=== PATIENT | male | born 1935 | race Caucasian/White ===

== ENCOUNTER 2018-02-01 22:03 | Inpatient (IN) ==
[2018-02-01] MEDS ORDERED: ALBUTEROL/IPRATROPIUM 3 ML NEB RESP TX STA (23:07)
[2018-02-01] MEDS ORDERED: methylPREDNISolone SOD SUC 125 MG/2 ML VIAL IV STA (23:07)
[2018-02-01 23:20] LABS: Basophils # 0.1 10*3/uL (0.0-0.2); Basophils % 0.6 % (0.0-0.8); Eosinophils # 0.3 10*3/uL (0.0-0.87); Eosinophils % 2.7 % (0.00-10.9); Hematocrit 37.2 VOL% (42.0-52.0); Hemoglobin 11.9 GM/DL (14.0-18.0); Immature Granulocytes % 0.9 %; Immature Granulocytes Absolute 0.09 #; Lymphocytes # 1.2 10*3/uL (1.4-4.0); Lymphocytes % 11.5 % (21.2-54.2); Mean Corpuscular Hemoglobin 31 PG (27-34); Mean Corpuscular Volume 95.4 FL (87-102); Mean Platelet Volume 10.3 FL (9.6-12.0); Monocytes # 0.7 10*3/uL (0.11-0.8); Monocytes % 6.9 % (1.7-12.7); Neutrophils # 7.7 10*3/uL (1.4-7.4); Neutrophils % 77.4 % (38.7-73.9); Platelet Count 240 T/CUMM (130-400); Red Cell Distribution Width 13.8 % (9.3-17.3)
[2018-02-01 23:30] LABS: Albumin 3.1 G/DL (3.4-5.0); Bilirubin,Total 0.4 MG/DL (0.2-1.0); Calcium 8.6 MG/DL (8.5-10.1); Osmolality,Calculated 283.5 MOS/KG (273-304); Potassium 4.6 MMOL/L (3.5-5.1); Total Protein 6.7 G/DL (6.4-8.3)
[2018-02-02 00:29] LABS: VBG Base Excess 3.6 MEQ/L (0-4); VBG HCO3 27.6 MEQ/L (24-28); VBG Oxygen Saturation 96.9 %; VBG PCO2 51.9 MMHG (41-51); VBG PH 7.371
[2018-02-02] MEDS ORDERED: ALBUTEROL 2.5 MG/3 ML NEB RESP TX PRN (01:42)
[2018-02-02] MEDS ORDERED: ONDANSETRON 4 MG/2 ML VIAL IV PRN (01:42)
[2018-02-02] MEDS ORDERED: MINOXIDIL 2.5 MG TABLET PO STA (03:30)
[2018-02-02] MEDS ORDERED: amLODIPine 5 MG TABLET PO STA (03:30)
[2018-02-02] MEDS: cefTRIAXone 1,000 MG in SYRINGE 1 EACH IV SCH (03:31)
[2018-02-02] MEDS: ALBUTEROL/IPRATROPIUM 3 ML NEB RESP TX SCH ×3 (07:14→19:24)
[2018-02-02 07:50] LABS: Basophils % 0.2 % (0.0-0.8); Eosinophils % 0.1 % (0.00-10.9); Hematocrit 36.2 VOL% (42.0-52.0); Hemoglobin 11.8 GM/DL (14.0-18.0); Immature Granulocytes % 1.3 %; Immature Granulocytes Absolute 0.11 #; Lymphocytes # 0.7 10*3/uL (1.4-4.0); Lymphocytes % 8.2 % (21.2-54.2); Mean Corpuscular HGB Conc 32.6 GM/DL (32-36); Mean Corpuscular Hemoglobin 31 PG (27-34); Mean Corpuscular Volume 93.8 FL (87-102); Mean Platelet Volume 10.1 FL (9.6-12.0); Monocytes # 0.1 10*3/uL (0.11-0.8); Monocytes % 0.9 % (1.7-12.7); Neutrophils # 7.6 10*3/uL (1.4-7.4); Neutrophils % 89.3 % (38.7-73.9); Platelet Count 241 T/CUMM (130-400); Red Blood Count 3.86 MC/CUMM (3.8-5.5); Red Cell Distribution Width 13.9 % (9.3-17.3); White Blood Count 8.6 T/CUMM (4-12)
[2018-02-02 08:24] LABS: Bilirubin,Total 0.5 MG/DL (0.2-1.0); Osmolality,Calculated 281.7 MOS/KG (273-304); Total Protein 7.2 G/DL (6.4-8.3)
[2018-02-02] MEDS ORDERED: methylPREDNISolone SOD SUC 40 MG/1 ML VIAL IV SCH (09:00)
[2018-02-02] MEDS: PANTOPRAZOLE 40 MG TABLET PO SCH (09:32)
[2018-02-02] MEDS: ENOXAPARIN 40 MG/0.4 ML SYRINGE SUBCUT SCH (09:32)
[2018-02-02] MEDS: methylPREDNISolone SOD SUC 40 MG/1 ML VIAL IV SCH ×2 (11:21→20:53)
[2018-02-02] MEDS ORDERED: hydrALAZINE 25 MG TABLET PO PRN (15:36)
[2018-02-02] MEDS ORDERED: amLODIPine 5 MG TABLET PO ONE (15:39)
[2018-02-02] MEDS: CARVEDILOL 12.5 MG TABLET PO SCH (17:41)
[2018-02-02] MEDS: CALCIUM (CARBONATE)/VITAMIN D 600 MG-400 UNIT TABLET PO SCH (20:51)
[2018-02-02] MEDS: ROSUVASTATIN 10 MG TABLET PO SCH (20:51)
[2018-02-02] MEDS: DOCUSATE SODIUM 100 MG CAPSULE PO SCH (20:51)
[2018-02-02] MEDS: AMITRIPTYLINE 50 MG TABLET PO SCH (20:52)
[2018-02-03] MEDS: ALBUTEROL/IPRATROPIUM 3 ML NEB RESP TX SCH ×4 (01:14→19:03)
[2018-02-03] MEDS: cefTRIAXone 1,000 MG in SYRINGE 1 EACH IV SCH (01:40)
[2018-02-03] MEDS: PANTOPRAZOLE 40 MG TABLET PO SCH (08:19)
[2018-02-03] MEDS: CARVEDILOL 12.5 MG TABLET PO SCH ×2 (08:19→16:15)
[2018-02-03] MEDS: MULTIVITAMIN (CENTRUM) TABLET PO SCH (08:20)
[2018-02-03] MEDS: hydroCHLOROthiazide 12.5 MG CAPSULE PO SCH (08:20)
[2018-02-03] MEDS: FINASTERIDE 5 MG TABLET PO SCH (08:20)
[2018-02-03] MEDS: amLODIPine 10 MG TABLET PO SCH (08:20)
[2018-02-03] MEDS: ENOXAPARIN 40 MG/0.4 ML SYRINGE SUBCUT SCH (08:21)
[2018-02-03] MEDS: MINOXIDIL 2.5 MG TABLET PO SCH (08:21)
[2018-02-03] MEDS: ASPIRIN EC 81 MG TABLET PO SCH (08:21)
[2018-02-03] MEDS: ASCORBIC ACID 500 MG TABLET PO SCH (08:21)
[2018-02-03] MEDS: TAMSULOSIN 0.4 MG CAPSULE PO SCH (08:21)
[2018-02-03] MEDS: CLOPIDOGREL 75 MG TABLET PO SCH (08:21)
[2018-02-03] MEDS: OMEGA 3 ACID ETHYL ESTERS 1 GM CAPSULE PO SCH (08:21)
[2018-02-03] MEDS: VITAMIN E 400 UNIT CAPSULE PO SCH (08:21)
[2018-02-03] MEDS: CETIRIZINE 10 MG TABLET PO SCH (08:23)
[2018-02-03] MEDS: methylPREDNISolone SOD SUC 40 MG/1 ML VIAL IV SCH ×2 (08:43→21:33)
[2018-02-03] MEDS: CALCIUM (CARBONATE)/VITAMIN D 600 MG-400 UNIT TABLET PO SCH (21:31)
[2018-02-03] MEDS: AMITRIPTYLINE 50 MG TABLET PO SCH (21:31)
[2018-02-03] MEDS: ROSUVASTATIN 10 MG TABLET PO SCH (21:31)
[2018-02-03] MEDS: DOCUSATE SODIUM 100 MG CAPSULE PO SCH (21:31)
[2018-02-04] MEDS: ALBUTEROL/IPRATROPIUM 3 ML NEB RESP TX SCH ×2 (00:17→07:14)
[2018-02-04] MEDS: cefTRIAXone 1,000 MG in SYRINGE 1 EACH IV SCH (01:40)
[2018-02-04 08:37] VITALS: BP 154/87
[2018-02-04] MEDS: MINOXIDIL 2.5 MG TABLET PO SCH (09:11)
[2018-02-04] MEDS: CARVEDILOL 12.5 MG TABLET PO SCH (09:11)
[2018-02-04] MEDS: PANTOPRAZOLE 40 MG TABLET PO SCH (09:11)
[2018-02-04] MEDS: VITAMIN E 400 UNIT CAPSULE PO SCH (09:11)
[2018-02-04] MEDS: amLODIPine 10 MG TABLET PO SCH (09:11)
[2018-02-04] MEDS: MULTIVITAMIN (CENTRUM) TABLET PO SCH (09:11)
[2018-02-04] MEDS: ASPIRIN EC 81 MG TABLET PO SCH (09:11)
[2018-02-04] MEDS: hydroCHLOROthiazide 12.5 MG CAPSULE PO SCH (09:11)
[2018-02-04] MEDS: TAMSULOSIN 0.4 MG CAPSULE PO SCH (09:11)
[2018-02-04] MEDS: FINASTERIDE 5 MG TABLET PO SCH (09:11)
[2018-02-04] MEDS: CETIRIZINE 10 MG TABLET PO SCH (09:11)
[2018-02-04] MEDS: OMEGA 3 ACID ETHYL ESTERS 1 GM CAPSULE PO SCH (09:12)
[2018-02-04] MEDS: CLOPIDOGREL 75 MG TABLET PO SCH (09:12)
[2018-02-04] MEDS: ASCORBIC ACID 500 MG TABLET PO SCH (09:12)
[2018-02-04] MEDS: ENOXAPARIN 40 MG/0.4 ML SYRINGE SUBCUT SCH (09:15)
[2018-02-04] MEDS: methylPREDNISolone SOD SUC 40 MG/1 ML VIAL IV SCH (09:16)
== END 2018-02-04 11:55 | disposition home or self-care (01) | DRG 203 ==
LOC: EDUNIT# → EDBD → N.ED 22:03 → N.EDINP 02-02 01:42 → SUATTDRO 02-02 01:42 → N.4E 02-02 02:28
PROVIDERS: ADMIT Internal Medicine; ATTEND Internal Medicine

== ENCOUNTER 2018-04-10 00:20 | Inpatient (IN) ==
[2018-04-10] MEDS ORDERED: ALBUTEROL/IPRATROPIUM 3 ML NEB RESP TX STA (01:01)
[2018-04-10] MEDS ORDERED: FUROSEMIDE 20 MG/2 ML VIAL IV STA (01:01)
[2018-04-10 01:03] LABS: Basophils % 0.5 % (0.0-0.8); Eosinophils # 0.4 10*3/uL (0.0-0.87); Eosinophils % 5.6 % (0.00-10.9); Hematocrit 30.1 VOL% (42.0-52.0); Hemoglobin 9.5 GM/DL (14.0-18.0); Immature Granulocytes % 0.6 %; Immature Granulocytes Absolute 0.05 #; Lymphocytes # 1.4 10*3/uL (1.4-4.0); Mean Corpuscular HGB Conc 31.6 GM/DL (32-36); Mean Corpuscular Hemoglobin 30 PG (27-34); Mean Platelet Volume 9.3 FL (9.6-12.0); Monocytes # 0.7 10*3/uL (0.11-0.8); Monocytes % 9.3 % (1.7-12.7); Neutrophils # 5.1 10*3/uL (1.4-7.4); Platelet Count 277 T/CUMM (130-400); Red Blood Count 3.17 MC/CUMM (3.8-5.5); Red Cell Distribution Width 13.6 % (9.3-17.3); White Blood Count 7.7 T/CUMM (4-12)
[2018-04-10 01:11] LABS: PT Patient Result 10.7 SECS; Partial Thromboplastin Time 24.7 SECS (0-40)
[2018-04-10 01:21] LABS: Albumin 3.1 G/DL (3.4-5.0); Bilirubin,Total 0.4 MG/DL (0.2-1.0); Calcium 8.3 MG/DL (8.5-10.1); Osmolality,Calculated 283.4 MOS/KG (273-304); Potassium 4.3 MMOL/L (3.5-5.1); Total Protein 6.2 G/DL (6.4-8.3)
[2018-04-10] MEDS ORDERED: methylPREDNISolone SOD SUC 125 MG/2 ML VIAL IV STA (02:20)
[2018-04-10] MEDS ORDERED: BISACODYL 5 MG TABLET PO PRN (03:20)
[2018-04-10] MEDS ORDERED: ALBUTEROL 2.5 MG/3 ML NEB RESP TX PRN (03:20)
[2018-04-10] MEDS ORDERED: ONDANSETRON 4 MG/2 ML VIAL IV PRN (03:20)
[2018-04-10] MEDS ORDERED: ACETAMINOPHEN 325 MG TABLET PO PRN (03:20)
[2018-04-10] MEDS ORDERED: NICOTINE 21 MG/24 HR PATCH TRANSDERM PRN (03:20)
[2018-04-10] MEDS ORDERED: diphenhydrAMINE CAP 25 MG CAPSULE PO PRN (03:20)
[2018-04-10] MEDS ORDERED: MORPHINE 4 MG/1 ML VIAL IV PRN (03:20)
[2018-04-10] MEDS ORDERED: guaiFENesin/DM ER 600-30 MG TABLET PO PRN (03:20)
[2018-04-10] MEDS: ALBUTEROL/IPRATROPIUM 3 ML NEB RESP TX SCH ×3 (07:02→19:03)
[2018-04-10] MEDS: LEVOFLOXACIN INJ 750 MG in PREMIX 1 EACH IV SCH (09:07)
[2018-04-10] MEDS: MULTIVITAMIN (CENTRUM) TABLET PO SCH (09:08)
[2018-04-10] MEDS: VITAMIN E 400 UNIT CAPSULE PO SCH (09:08)
[2018-04-10] MEDS: ASCORBIC ACID 500 MG TABLET PO SCH (09:08)
[2018-04-10] MEDS: MINOXIDIL 2.5 MG TABLET PO SCH (09:08)
[2018-04-10] MEDS: PANTOPRAZOLE 40 MG TABLET PO SCH (09:08)
[2018-04-10] MEDS: CARVEDILOL 12.5 MG TABLET PO SCH ×2 (09:08→20:56)
[2018-04-10] MEDS: hydroCHLOROthiazide 12.5 MG CAPSULE PO SCH (09:08)
[2018-04-10] MEDS: CETIRIZINE 10 MG TABLET PO SCH (09:08)
[2018-04-10] MEDS: FINASTERIDE 5 MG TABLET PO SCH (09:08)
[2018-04-10] MEDS: ASPIRIN EC 81 MG TABLET PO SCH (09:08)
[2018-04-10] MEDS: CLOPIDOGREL 75 MG TABLET PO SCH (09:08)
[2018-04-10] MEDS: TAMSULOSIN 0.4 MG CAPSULE PO SCH (09:09)
[2018-04-10] MEDS: OMEGA 3 ACID ETHYL ESTERS 1 GM CAPSULE PO SCH (09:09)
[2018-04-10] MEDS: amLODIPine 10 MG TABLET PO SCH (09:09)
[2018-04-10] MEDS ORDERED: methylPREDNISolone SOD SUC 40 MG/1 ML VIAL IV SCH (14:30)
[2018-04-10] MEDS: FUROSEMIDE 40 MG/4 ML VIAL IV SCH (15:22)
[2018-04-10] MEDS: CALCIUM (CARBONATE)/VITAMIN D 600 MG-400 UNIT TABLET PO SCH (20:56)
[2018-04-10] MEDS: ROSUVASTATIN 10 MG TABLET PO SCH (20:56)
[2018-04-10] MEDS: DOCUSATE SODIUM 100 MG CAPSULE PO SCH (20:57)
[2018-04-10] MEDS ORDERED: AMITRIPTYLINE 25 MG TABLET PO SCH (21:00)
[2018-04-11] MEDS: ALBUTEROL/IPRATROPIUM 3 ML NEB RESP TX SCH ×4 (00:53→19:52)
[2018-04-11 05:27] LABS: Basophils % 0.3 % (0.0-0.8); Eosinophils # 0.3 10*3/uL (0.0-0.87); Eosinophils % 3.4 % (0.00-10.9); Hematocrit 29.3 VOL% (42.0-52.0); Hemoglobin 9.2 GM/DL (14.0-18.0); Immature Granulocytes % 0.6 %; Immature Granulocytes Absolute 0.06 #; Lymphocytes # 1.8 10*3/uL (1.4-4.0); Lymphocytes % 18.8 % (21.2-54.2); Mean Corpuscular HGB Conc 31.4 GM/DL (32-36); Mean Corpuscular Hemoglobin 30 PG (27-34); Mean Corpuscular Volume 93.9 FL (87-102); Mean Platelet Volume 9.6 FL (9.6-12.0); Monocytes # 0.8 10*3/uL (0.11-0.8); Monocytes % 8.4 % (1.7-12.7); Neutrophils # 6.7 10*3/uL (1.4-7.4); Neutrophils % 68.5 % (38.7-73.9); Platelet Count 306 T/CUMM (130-400); Red Blood Count 3.12 MC/CUMM (3.8-5.5); Red Cell Distribution Width 13.8 % (9.3-17.3); White Blood Count 9.8 T/CUMM (4-12)
[2018-04-11 05:46] LABS: Calcium 8.8 MG/DL (8.5-10.1); Osmolality,Calculated 282.7 MOS/KG (273-304); Potassium 3.8 MMOL/L (3.5-5.1)
[2018-04-11] MEDS: LEVOFLOXACIN INJ 750 MG in PREMIX 1 EACH IV SCH (09:20)
[2018-04-11] MEDS: FUROSEMIDE 40 MG/4 ML VIAL IV SCH ×2 (09:21→17:05)
[2018-04-11] MEDS: methylPREDNISolone SOD SUC 40 MG/1 ML VIAL IV SCH (09:21)
[2018-04-11] MEDS: TAMSULOSIN 0.4 MG CAPSULE PO SCH (09:21)
[2018-04-11] MEDS: amLODIPine 10 MG TABLET PO SCH (09:21)
[2018-04-11] MEDS: CLOPIDOGREL 75 MG TABLET PO SCH (09:22)
[2018-04-11] MEDS: VITAMIN E 400 UNIT CAPSULE PO SCH (09:22)
[2018-04-11] MEDS: MULTIVITAMIN (CENTRUM) TABLET PO SCH (09:22)
[2018-04-11] MEDS: ASPIRIN EC 81 MG TABLET PO SCH (09:22)
[2018-04-11] MEDS: CARVEDILOL 12.5 MG TABLET PO SCH ×2 (09:22→20:59)
[2018-04-11] MEDS: CETIRIZINE 10 MG TABLET PO SCH (09:22)
[2018-04-11] MEDS: hydroCHLOROthiazide 12.5 MG CAPSULE PO SCH (09:22)
[2018-04-11] MEDS: OMEGA 3 ACID ETHYL ESTERS 1 GM CAPSULE PO SCH (09:22)
[2018-04-11] MEDS: ASCORBIC ACID 500 MG TABLET PO SCH (09:22)
[2018-04-11] MEDS: FINASTERIDE 5 MG TABLET PO SCH (09:22)
[2018-04-11] MEDS: PANTOPRAZOLE 40 MG TABLET PO SCH (09:22)
[2018-04-11] MEDS: MINOXIDIL 2.5 MG TABLET PO SCH (09:23)
[2018-04-11] MEDS: ROSUVASTATIN 10 MG TABLET PO SCH (20:59)
[2018-04-11] MEDS: CALCIUM (CARBONATE)/VITAMIN D 600 MG-400 UNIT TABLET PO SCH (20:59)
[2018-04-11] MEDS ORDERED: AMITRIPTYLINE 100 MG TABLET PO SCH (21:00)
[2018-04-11] MEDS: DOCUSATE SODIUM 100 MG CAPSULE PO SCH (21:00)
[2018-04-12] MEDS: ALBUTEROL/IPRATROPIUM 3 ML NEB RESP TX SCH ×2 (07:10)
[2018-04-12 08:40] VITALS: BP 138/66
[2018-04-12] MEDS: ASPIRIN EC 81 MG TABLET PO SCH (09:38)
[2018-04-12] MEDS: hydroCHLOROthiazide 12.5 MG CAPSULE PO SCH (09:39)
[2018-04-12] MEDS: CARVEDILOL 12.5 MG TABLET PO SCH (09:39)
[2018-04-12] MEDS: FINASTERIDE 5 MG TABLET PO SCH (09:39)
[2018-04-12] MEDS: PANTOPRAZOLE 40 MG TABLET PO SCH (09:39)
[2018-04-12] MEDS: VITAMIN E 400 UNIT CAPSULE PO SCH (09:39)
[2018-04-12] MEDS: CETIRIZINE 10 MG TABLET PO SCH (09:39)
[2018-04-12] MEDS: amLODIPine 10 MG TABLET PO SCH (09:39)
[2018-04-12] MEDS: OMEGA 3 ACID ETHYL ESTERS 1 GM CAPSULE PO SCH (09:39)
[2018-04-12] MEDS: MULTIVITAMIN (CENTRUM) TABLET PO SCH (09:39)
[2018-04-12] MEDS: TAMSULOSIN 0.4 MG CAPSULE PO SCH (09:39)
[2018-04-12] MEDS: CLOPIDOGREL 75 MG TABLET PO SCH (09:40)
[2018-04-12] MEDS: methylPREDNISolone SOD SUC 40 MG/1 ML VIAL IV SCH (09:40)
[2018-04-12] MEDS: MINOXIDIL 2.5 MG TABLET PO SCH (09:43)
[2018-04-12] MEDS: LEVOFLOXACIN INJ 750 MG in PREMIX 1 EACH IV SCH (09:46)
== END 2018-04-12 11:50 | disposition home or self-care (01) | DRG 191 ==
LOC: EDUNIT# → EDBD → N.ED 00:20 → N.EDINP 03:20 → N.4E 03:59
PROVIDERS: ADMIT Internal Medicine; ATTEND Internal Medicine

== ENCOUNTER 2019-02-06 04:26 | Inpatient (IN) ==
[2019-02-06 05:52] LABS: Albumin 3.1 G/DL (3.4-5.0); Bilirubin,Total 0.5 MG/DL (0.2-1.0); Calcium 8.5 MG/DL (8.5-10.1); Osmolality,Calculated 286.4 MOS/KG (273-304); Total Protein 6.4 G/DL (6.4-8.3)
[2019-02-06 05:59] LABS: Basophils # 0.1 10*3/uL (0.0-0.2); Basophils % 0.6 % (0.0-0.8); Eosinophils # 0.3 10*3/uL (0.0-0.87); Eosinophils % 3.8 % (0.00-10.9); Hematocrit 23.8 VOL% (42.0-52.0); Hemoglobin 7.1 GM/DL (14.0-18.0); Immature Granulocytes % 0.6 %; Immature Granulocytes Absolute 0.05 #; Lymphocytes # 1.4 10*3/uL (1.4-4.0); Lymphocytes % 17.1 % (21.2-54.2); Mean Corpuscular HGB Conc 29.8 GM/DL (32-36); Mean Corpuscular Volume 85.9 FL (87-102); Mean Platelet Volume 9.6 FL (9.6-12.0); Monocytes % 9.1 % (1.7-12.7); Neutrophils % 68.8 % (38.7-73.9); Platelet Count 300 T/CUMM (130-400); Red Blood Count 2.77 MC/CUMM (3.8-5.5); Red Cell Distribution Width 16.7 % (9.3-17.3); White Blood Count 8.4 T/CUMM (4-12)
[2019-02-06 06:06] LABS: Amorphous Crystals,Urine Few /HPF (Few); Apearance,Urine Slightly Hazy (Clear); Bacteria,Urine Occasional /HPF (Few); Bilirubin,Urine Negative (Negative); Blood, Urine Negative (Negative); Glucose,Urine (UA) Negative (Negative); Ketones,Urine Negative (Negative); Mucus,Urine Occasional /LPF (Occasional); Nitrite,Urine Negative (Negative); Protein,Urine Negative; RBC,Urine 6 /HPF (0-4); Squamous Epithelial Cell,Urine Few /HPF (0-10); Urine Color Yellow (Yellow); Urine Specific Gravity 1.017 (1.001-1.035); Urine Urobilinogen < 2.0 EU/DL (0.2-1.0); WBC,Urine 3 /HPF (0-6)
[2019-02-06 06:49] LABS: Basophils # 0.1 10*3/uL (0.0-0.2); Basophils % 0.7 % (0.0-0.8); Eosinophils # 0.3 10*3/uL (0.0-0.87); Eosinophils % 4.2 % (0.00-10.9); Hematocrit 23.5 VOL% (42.0-52.0); Hemoglobin 7.2 GM/DL (14.0-18.0); Immature Granulocytes % 0.4 %; Immature Granulocytes Absolute 0.03 #; Lymphocytes # 1.2 10*3/uL (1.4-4.0); Lymphocytes % 14.7 % (21.2-54.2); Mean Corpuscular HGB Conc 30.6 GM/DL (32-36); Mean Corpuscular Volume 86.7 FL (87-102); Mean Platelet Volume 9.4 FL (9.6-12.0); Platelet Count 293 T/CUMM (130-400); Red Blood Count 2.71 MC/CUMM (3.8-5.5); Red Cell Distribution Width 16.7 % (9.3-17.3); White Blood Count 8.1 T/CUMM (4-12)
[2019-02-06 07:20] LABS: Folate > 24.0 NG/ML (5.4-24.0); Vitamin B12 1017 PG/ML (211-911)
[2019-02-06 07:49] LABS: Sedimentation Rate-Westergren 87 MM/HR (0-20)
[2019-02-06] MEDS ORDERED: ACETAMINOPHEN 325 MG TABLET PO PRN (08:20)
[2019-02-06] MEDS ORDERED: ONDANSETRON 4 MG/2 ML VIAL IV PRN (08:20)
[2019-02-06] MEDS ORDERED: SODIUM CHLORIDE 0.9% 1,000 ML IV PRN (08:26)
[2019-02-06 08:55] LABS: % Iron Saturation 6.3 % (18-50)
[2019-02-06] MEDS ORDERED: predniSONE 20 MG TABLET PO SCH (09:00)
[2019-02-06] MEDS ORDERED: PANTOPRAZOLE 40 MG VIAL IV SCH (09:00)
[2019-02-06] MEDS: MULTIVITAMIN (CENTRUM) TABLET PO SCH (11:18)
[2019-02-06] MEDS: FINASTERIDE 5 MG TABLET PO SCH (11:18)
[2019-02-06] MEDS: VITAMIN E 400 UNIT CAPSULE PO SCH (11:18)
[2019-02-06] MEDS: ASCORBIC ACID 500 MG TABLET PO SCH (11:18)
[2019-02-06] MEDS: predniSONE 10 MG TABLET PO SCH (11:18)
[2019-02-06] MEDS: OMEGA 3 ACID ETHYL ESTERS 1 GM CAPSULE PO SCH (11:18)
[2019-02-06] MEDS: TAMSULOSIN 0.4 MG CAPSULE PO SCH (11:18)
[2019-02-06] MEDS: PANTOPRAZOLE 40 MG TABLET PO SCH ×2 (11:18→21:03)
[2019-02-06] MEDS: CETIRIZINE 10 MG TABLET PO SCH (11:18)
[2019-02-06] MEDS ORDERED: LISINOPRIL 10 MG TABLET PO ONE (21:00)
[2019-02-06] MEDS: CALCIUM (CARBONATE)/VITAMIN D 600 MG-400 UNIT TABLET PO SCH (21:04)
[2019-02-06] MEDS: ROSUVASTATIN 10 MG TABLET PO SCH (21:04)
[2019-02-07 01:06] LABS: Hematocrit 32.1 VOL% (42.0-52.0); Hemoglobin 10.2 GM/DL (14.0-18.0)
[2019-02-07 01:22] LABS: Calcium 8.7 MG/DL (8.5-10.1); Osmolality,Calculated 284.5 MOS/KG (273-304)
[2019-02-07 03:51] LABS: Basophils # 0.1 10*3/uL (0.0-0.2); Basophils % 0.8 % (0.0-0.8); Eosinophils # 0.3 10*3/uL (0.0-0.87); Eosinophils % 4.2 % (0.00-10.9); Hematocrit 29.9 VOL% (42.0-52.0); Hemoglobin 9.5 GM/DL (14.0-18.0); Immature Granulocytes % 0.3 %; Immature Granulocytes Absolute 0.02 #; Lymphocytes # 1.3 10*3/uL (1.4-4.0); Lymphocytes % 17.2 % (21.2-54.2); Mean Corpuscular HGB Conc 31.8 GM/DL (32-36); Mean Corpuscular Volume 84.9 FL (87-102); Mean Platelet Volume 9.3 FL (9.6-12.0); Monocytes % 11.2 % (1.7-12.7); Neutrophils % 66.3 % (38.7-73.9); Platelet Count 271 T/CUMM (130-400); Red Blood Count 3.52 MC/CUMM (3.8-5.5); Red Cell Distribution Width 15.9 % (9.3-17.3); White Blood Count 7.7 T/CUMM (4-12)
[2019-02-07] MEDS: TAMSULOSIN 0.4 MG CAPSULE PO SCH (12:31)
[2019-02-07] MEDS: FINASTERIDE 5 MG TABLET PO SCH (12:31)
[2019-02-07] MEDS: OMEGA 3 ACID ETHYL ESTERS 1 GM CAPSULE PO SCH (12:31)
[2019-02-07] MEDS: CETIRIZINE 10 MG TABLET PO SCH (12:31)
[2019-02-07] MEDS: VITAMIN E 400 UNIT CAPSULE PO SCH (12:31)
[2019-02-07] MEDS: ASCORBIC ACID 500 MG TABLET PO SCH (12:31)
[2019-02-07] MEDS: MULTIVITAMIN (CENTRUM) TABLET PO SCH (12:31)
[2019-02-07] MEDS: PANTOPRAZOLE 40 MG TABLET PO SCH ×2 (12:31→20:37)
[2019-02-07] MEDS: CALCIUM (CARBONATE)/VITAMIN D 600 MG-400 UNIT TABLET PO SCH (20:37)
[2019-02-07] MEDS: ROSUVASTATIN 10 MG TABLET PO SCH (20:37)
[2019-02-08 04:42] LABS: Basophils % 0.5 % (0.0-0.8); Eosinophils # 0.4 10*3/uL (0.0-0.87); Eosinophils % 5.2 % (0.00-10.9); Hematocrit 31.3 VOL% (42.0-52.0); Hemoglobin 9.6 GM/DL (14.0-18.0); Immature Granulocytes % 0.4 %; Immature Granulocytes Absolute 0.03 #; Lymphocytes # 1.3 10*3/uL (1.4-4.0); Lymphocytes % 17.3 % (21.2-54.2); Mean Corpuscular HGB Conc 30.7 GM/DL (32-36); Mean Corpuscular Volume 87.4 FL (87-102); Monocytes % 11.4 % (1.7-12.7); Neutrophils % 65.2 % (38.7-73.9); Platelet Count 265 T/CUMM (130-400); Red Blood Count 3.58 MC/CUMM (3.8-5.5); Red Cell Distribution Width 16.1 % (9.3-17.3); White Blood Count 7.3 T/CUMM (4-12)
[2019-02-08] MEDS: ASCORBIC ACID 500 MG TABLET PO SCH (08:36)
[2019-02-08] MEDS: MULTIVITAMIN (CENTRUM) TABLET PO SCH (08:36)
[2019-02-08] MEDS: TAMSULOSIN 0.4 MG CAPSULE PO SCH (08:37)
[2019-02-08] MEDS: CETIRIZINE 10 MG TABLET PO SCH (08:37)
[2019-02-08] MEDS: FINASTERIDE 5 MG TABLET PO SCH (08:37)
[2019-02-08] MEDS: OMEGA 3 ACID ETHYL ESTERS 1 GM CAPSULE PO SCH (08:37)
[2019-02-08] MEDS: PANTOPRAZOLE 40 MG TABLET PO SCH (08:37)
[2019-02-08] MEDS: predniSONE 10 MG TABLET PO SCH (08:37)
[2019-02-08] MEDS: VITAMIN E 400 UNIT CAPSULE PO SCH (08:38)
[2019-02-08 09:28] VITALS: BP 145/84
== END 2019-02-08 10:50 | disposition home or self-care (01) | DRG 812 ==
LOC: EDUNIT# → EDBD → N.ED 04:26 → SUATTDRO 08:20 → N.EDINP 08:20 → N.4E 10:04
PROVIDERS: ADMIT Internal Medicine; ATTEND Internal Medicine Cardiovascular Disease

== ENCOUNTER 2019-03-21 19:35 | Inpatient (IN) ==
[2019-03-21] MEDS ORDERED: ONDANSETRON 4 MG/2 ML VIAL IV STA (19:57)
[2019-03-21] MEDS ORDERED: methylPREDNISolone SOD SUC 125 MG/2 ML VIAL IV STA (19:57)
[2019-03-21] MEDS ORDERED: ALBUTEROL/IPRATROPIUM 3 ML NEB RESP TX STA (19:57)
[2019-03-21 20:39] LABS: Allen Test Positive
[2019-03-21 20:40] LABS: ABG Base Excess 5.9 MMOL/L (-2.5-2.5); ABG HCO3 31.7 MMOL/L (20-26); ABG Oxygen Saturation 95.1 % (95-100); ABG PCO2 51.7 MM HG (35-48); ABG PH 7.405 (7.35-7.45); ABG PO2 84.2 MM HG (80-95); ABG TCO2 33.3 MMOL/L (23-27)
[2019-03-21 20:57] LABS: Basophils % 0.6 % (0.0-0.8); Eosinophils # 0.1 10*3/uL (0.0-0.87); Eosinophils % 1.7 % (0.00-10.9); Hematocrit 33.3 VOL% (42.0-52.0); Hemoglobin 10.2 GM/DL (14.0-18.0); Immature Granulocytes Absolute 0.07 #; Lymphocytes # 1.1 10*3/uL (1.4-4.0); Lymphocytes % 15.1 % (21.2-54.2); Mean Corpuscular HGB Conc 30.6 GM/DL (32-36); Mean Corpuscular Volume 85.8 FL (87-102); Mean Platelet Volume 9.2 FL (9.6-12.0); Monocytes % 8.3 % (1.7-12.7); Neutrophils % 73.3 % (38.7-73.9); Platelet Count 331 T/CUMM (130-400); Red Blood Count 3.88 MC/CUMM (3.8-5.5); Red Cell Distribution Width 16.4 % (9.3-17.3); White Blood Count 7.1 T/CUMM (4-12)
[2019-03-21 21:07] LABS: PT Patient Result 10.9 SECS (9.6-12.2)
[2019-03-21 21:21] LABS: Bilirubin,Total 0.4 MG/DL (0.2-1.0); Calcium 8.4 MG/DL (8.5-10.1)
[2019-03-21] MEDS ORDERED: PROMETHAZINE 25 MG TABLET PO PRN (22:05)
[2019-03-21] MEDS ORDERED: ZALEPLON 5 MG CAPSULE PO PRN (22:05)
[2019-03-21] MEDS ORDERED: MORPHINE 4 MG/1 ML VIAL IV PRN (22:05)
[2019-03-21] MEDS ORDERED: DOCUSATE SODIUM 100 MG CAPSULE PO PRN (22:05)
[2019-03-21] MEDS ORDERED: ACETAMINOPHEN 325 MG TABLET PO PRN (22:05)
[2019-03-21] MEDS ORDERED: NICOTINE 21 MG/24 HR PATCH TRANSDERM PRN (22:05)
[2019-03-21] MEDS ORDERED: guaiFENesin/DM ER 600-30 MG TABLET PO PRN (22:05)
[2019-03-21] MEDS ORDERED: ONDANSETRON 4 MG/2 ML VIAL IV PRN (22:05)
[2019-03-21] MEDS ORDERED: hydrALAZINE 20 MG/1 ML VIAL IV PRN (23:46)
[2019-03-22] MEDS ORDERED: ENOXAPARIN 80 MG/0.8 ML SYRINGE SUBCUT ONE
[2019-03-22] MEDS: cefTRIAXone 1,000 MG in SYRINGE 1 EACH IV SCH (00:32)
[2019-03-22] MEDS: AZITHROMYCIN INJ 500 MG in SODIUM CHLORIDE 0.9% 250 ML IV SCH (00:37)
[2019-03-22] MEDS: ALBUTEROL/IPRATROPIUM 3 ML NEB RESP TX SCH ×6 (03:15→23:15)
[2019-03-22 06:08] LABS: Basophils % 0.4 % (0.0-0.8); Eosinophils % 0.2 % (0.00-10.9); Hematocrit 33.8 VOL% (42.0-52.0); Hemoglobin 10.3 GM/DL (14.0-18.0); Immature Granulocytes % 1.1 %; Immature Granulocytes Absolute 0.06 #; Lymphocytes # 0.5 10*3/uL (1.4-4.0); Lymphocytes % 7.9 % (21.2-54.2); Mean Corpuscular HGB Conc 30.5 GM/DL (32-36); Mean Corpuscular Volume 89.2 FL (87-102); Mean Platelet Volume 9.9 FL (9.6-12.0); Monocytes % 1.4 % (1.7-12.7); Platelet Count 297 T/CUMM (130-400); Red Blood Count 3.79 MC/CUMM (3.8-5.5); Red Cell Distribution Width 16.6 % (9.3-17.3); White Blood Count 5.7 T/CUMM (4-12)
[2019-03-22 06:21] LABS: Anisocytosis 1+; Hypochromasia 1+; Lymphocytes 4 % (20-55); Platelet Estimate Adequate; Segmented Neutrophils 95 % (50-85); Total Cells Counted 100
[2019-03-22 07:00] LABS: Calcium 8.3 MG/DL (8.5-10.1); Osmolality,Calculated 278.1 MOS/KG (273-304)
[2019-03-22 07:08] LABS: ABG Base Excess 5.1 MMOL/L (-2.5-2.5); ABG Oxygen Saturation 96.3 % (95-100); ABG PH 7.319 (7.35-7.45); ABG PO2 92.7 MM HG (80-95); ABG TCO2 30.3 MMOL/L (23-27); Allen Test Positive
[2019-03-22] MEDS: amLODIPine 10 MG TABLET PO SCH (08:28)
[2019-03-22] MEDS: PANTOPRAZOLE 40 MG TABLET PO SCH (08:28)
[2019-03-22] MEDS: FUROSEMIDE 40 MG/4 ML VIAL IV SCH ×2 (08:28→16:21)
[2019-03-22] MEDS: carvediloL 12.5 MG TABLET PO SCH ×2 (08:28→16:21)
[2019-03-22] MEDS: CETIRIZINE 10 MG TABLET PO SCH (08:28)
[2019-03-22] MEDS: TAMSULOSIN 0.4 MG CAPSULE PO SCH (08:28)
[2019-03-22] MEDS: ASPIRIN EC 81 MG TABLET PO SCH (08:28)
[2019-03-22] MEDS: CLOPIDOGREL 75 MG TABLET PO SCH (08:28)
[2019-03-22] MEDS ORDERED: ENOXAPARIN 40 MG/0.4 ML SYRINGE SUBCUT SCH (09:00)
[2019-03-22] MEDS ORDERED: ROSUVASTATIN 10 MG TABLET PO SCH (21:00)
[2019-03-23] MEDS: cefTRIAXone 1,000 MG in SYRINGE 1 EACH IV SCH (00:05)
[2019-03-23] MEDS: AZITHROMYCIN INJ 500 MG in SODIUM CHLORIDE 0.9% 250 ML IV SCH (00:08)
[2019-03-23] MEDS: ALBUTEROL/IPRATROPIUM 3 ML NEB RESP TX SCH ×3 (03:20→10:35)
[2019-03-23 04:29] LABS: ABG HCO3 31.6 MMOL/L (20-26); ABG Oxygen Saturation 89.5 % (95-100); ABG PH 7.351 (7.35-7.45); ABG PO2 63.7 MM HG (80-95); ABG TCO2 32.8 MMOL/L (23-27); Allen Test Positive; Pt O2 Delivery Device BIPAP
[2019-03-23 05:31] LABS: Basophils % 0.5 % (0.0-0.8); Eosinophils # 0.4 10*3/uL (0.0-0.87); Eosinophils % 4.7 % (0.00-10.9); Hematocrit 30.3 VOL% (42.0-52.0); Hemoglobin 9.2 GM/DL (14.0-18.0); Immature Granulocytes % 0.5 %; Immature Granulocytes Absolute 0.04 #; Lymphocytes # 1.5 10*3/uL (1.4-4.0); Lymphocytes % 16.9 % (21.2-54.2); Mean Corpuscular HGB Conc 30.4 GM/DL (32-36); Mean Corpuscular Volume 87.6 FL (87-102); Mean Platelet Volume 9.4 FL (9.6-12.0); Monocytes % 8.2 % (1.7-12.7); Neutrophils % 69.2 % (38.7-73.9); Platelet Count 314 T/CUMM (130-400); Red Blood Count 3.46 MC/CUMM (3.8-5.5); Red Cell Distribution Width 16.4 % (9.3-17.3); White Blood Count 8.8 T/CUMM (4-12)
[2019-03-23 05:58] LABS: Calcium 8.3 MG/DL (8.5-10.1); Osmolality,Calculated 280.8 MOS/KG (273-304)
[2019-03-23] MEDS: CETIRIZINE 10 MG TABLET PO SCH (08:59)
[2019-03-23] MEDS: ASPIRIN EC 81 MG TABLET PO SCH (08:59)
[2019-03-23] MEDS: TAMSULOSIN 0.4 MG CAPSULE PO SCH (08:59)
[2019-03-23] MEDS: amLODIPine 10 MG TABLET PO SCH (08:59)
[2019-03-23] MEDS ORDERED: predniSONE 20 MG TABLET PO SCH (09:00)
[2019-03-23] MEDS: PANTOPRAZOLE 40 MG TABLET PO SCH (09:01)
[2019-03-23] MEDS: carvediloL 12.5 MG TABLET PO SCH (09:01)
[2019-03-23] MEDS: CLOPIDOGREL 75 MG TABLET PO SCH (09:01)
[2019-03-23] MEDS: FUROSEMIDE 40 MG/4 ML VIAL IV SCH (09:02)
[2019-03-23 12:05] VITALS: BP 130/63
[2019-03-23] MEDS ORDERED: carvediloL 6.25 MG TABLET PO SCH (21:00)
== END 2019-03-23 15:40 | disposition home health service (06) | DRG 196 ==
LOC: EDUNIT# → EDBD → N.ED 19:35 → N.EDINP 22:05 → SUATTDRO 22:05 → N.ICU 22:48 → N.4E 03-22 14:41
PROVIDERS: ADMIT Internal Medicine; ATTEND Internal Medicine

== ENCOUNTER 2020-07-25 00:03 | Inpatient (IN) ==
[2020-07-25] MEDS ORDERED: ONDANSETRON 4 MG/2 ML VIAL IV STA (00:29)
[2020-07-25] MEDS ORDERED: PANTOPRAZOLE 40 MG VIAL IV STA (00:29)
[2020-07-25] MEDS ORDERED: SODIUM CHLORIDE 0.9% 500 ML IV STA (00:29)
[2020-07-25] MEDS ORDERED: MORPHINE 4 MG/1 ML VIAL IV STA ×2 (00:29→02:44)
[2020-07-25 01:39] LABS: Basophils # 0.1 10*3/uL (0.0-0.2); Basophils % 0.6 % (0.0-0.8); Eosinophils # 0.2 10*3/uL (0.0-0.87); Eosinophils % 2.4 % (0.00-10.9); Hematocrit 29.3 VOL% (42.0-52.0); Hemoglobin 9.2 GM/DL (14.0-18.0); Immature Granulocytes % 1.4 %; Immature Granulocytes Absolute 0.13 #; Lymphocytes # 0.9 10*3/uL (1.4-4.0); Lymphocytes % 9.7 % (21.2-54.2); Mean Corpuscular HGB Conc 31.4 GM/DL (32-36); Mean Corpuscular Volume 103.9 FL (87-102); Mean Platelet Volume 9.8 FL (9.6-12.0); Monocytes % 6.5 % (1.7-12.7); Neutrophils % 79.4 % (38.7-73.9); Platelet Count 259 T/CUMM (130-400); Red Blood Count 2.82 MC/CUMM (3.8-5.5); Red Cell Distribution Width 16.1 % (9.3-17.3); White Blood Count 9.1 T/CUMM (4-12)
[2020-07-25 02:18] LABS: Bilirubin,Total 0.4 MG/DL (0.2-1.0); Calcium 8.5 MG/DL (8.5-10.1); Osmolality,Calculated 287.4 MOS/KG (273-304); Potassium 4.2 MMOL/L (3.5-5.1)
[2020-07-25] MEDS ORDERED: methylPREDNISolone SOD SUC 125 MG/2 ML VIAL IV STA (02:44)
[2020-07-25] MEDS ORDERED: FUROSEMIDE 40 MG/4 ML VIAL IV STA (02:44)
[2020-07-25] MEDS ORDERED: DILTIAZEM 50 MG/10 ML VIAL IV STA (02:44)
[2020-07-25] MEDS: DILTIAZEM INJ 100 MG in SODIUM CHLORIDE 0.9% 100 ML IV SCH (03:24)
[2020-07-25] MEDS ORDERED: LACTULOSE 20 GM/30 ML UDCUP PO PRN (04:09)
[2020-07-25] MEDS ORDERED: DEXTROSE 50% 25 GM/50 ML VIAL IV PRN (04:09)
[2020-07-25] MEDS ORDERED: GLUCAGON 1 MG VIAL IM PRN (04:09)
[2020-07-25] MEDS ORDERED: ONDANSETRON 4 MG/2 ML VIAL IV PRN (04:09)
[2020-07-25] MEDS ORDERED: ACETAMINOPHEN 325 MG TABLET PO PRN (04:09)
[2020-07-25 04:38] LABS: Bilirubin,Urine Negative (Negative); Blood, Urine Large mg/dL (Negative); Glucose,Urine (UA) Negative (Negative); Hyaline Casts,Urine 4 /LPF (0-3); Ketones,Urine Negative (Negative); Mucus,Urine Occasional /LPF (Occasional); Nitrite,Urine Negative (Negative); Protein,Urine Negative; RBC,Urine 25 /HPF (0-4); Squamous Epithelial Cell,Urine Occasional /HPF (0-10); Urine Appearance CLEAR (Clear); Urine Color Yellow (Yellow); Urine Specific Gravity 1.009 (1.001-1.035); Urine Urobilinogen < 2.0 EU/DL (0.2-1.0)
[2020-07-25] MEDS ORDERED: FUROSEMIDE 20 MG TABLET PO SCH (09:00)
[2020-07-25] MEDS ORDERED: ENOXAPARIN 40 MG/0.4 ML SYRINGE SUBCUT SCH (09:00)
[2020-07-25] MEDS: APIXABAN 2.5 MG TABLET PO SCH ×2 (10:23→20:50)
[2020-07-25] MEDS: ASPIRIN EC 81 MG TABLET PO SCH (10:23)
[2020-07-25] MEDS: carvediloL 12.5 MG TABLET PO SCH ×2 (10:23→16:54)
[2020-07-25] MEDS: amLODIPine 5 MG TABLET PO SCH (10:23)
[2020-07-25] MEDS: CETIRIZINE 10 MG TABLET PO SCH (10:24)
[2020-07-25] MEDS ORDERED: FUROSEMIDE 20 MG TABLET PO PRN (13:25)
[2020-07-25] MEDS: ROSUVASTATIN 10 MG TABLET PO SCH (20:50)
[2020-07-25] MEDS ORDERED: AMITRIPTYLINE 75 MG TABLET PO ONE (22:52)
[2020-07-26] MEDS: DILTIAZEM INJ 100 MG in SODIUM CHLORIDE 0.9% 100 ML IV SCH (05:52)
[2020-07-26] MEDS ORDERED: MAGNESIUM HYDROXIDE SUSP 30 ML UDCUP PO ONE (08:43)
[2020-07-26] MEDS: PSYLLIUM POWDER 3.7 GM/PACK PO SCH ×2 (09:30→23:14)
[2020-07-26] MEDS: DOCUSATE SODIUM 100 MG CAPSULE PO SCH ×2 (09:30→23:13)
[2020-07-26] MEDS: amLODIPine 5 MG TABLET PO SCH (09:30)
[2020-07-26] MEDS: ASPIRIN EC 81 MG TABLET PO SCH (09:30)
[2020-07-26] MEDS: carvediloL 12.5 MG TABLET PO SCH ×2 (09:30→18:16)
[2020-07-26] MEDS: APIXABAN 2.5 MG TABLET PO SCH ×2 (09:30→23:14)
[2020-07-26] MEDS: CETIRIZINE 10 MG TABLET PO SCH (09:30)
[2020-07-26] MEDS: SODIUM CHLORIDE 0.9% 1,000 ML IV SCH (11:15)
[2020-07-26] MEDS ORDERED: POLYETHYLENE GLYCOL POWDER 17 GM PACK PO PRN (14:44)
[2020-07-26 21:54] LABS: Basophils % 0.3 % (0.0-0.8); Eosinophils # 0.2 10*3/uL (0.0-0.87); Eosinophils % 1.5 % (0.00-10.9); Hematocrit 28.2 VOL% (42.0-52.0); Hemoglobin 8.5 GM/DL (14.0-18.0); Immature Granulocytes % 2.8 %; Immature Granulocytes Absolute 0.41 #; Lymphocytes # 1.7 10*3/uL (1.4-4.0); Lymphocytes % 11.7 % (21.2-54.2); Mean Corpuscular HGB Conc 30.1 GM/DL (32-36); Mean Corpuscular Volume 107.6 FL (87-102); Mean Platelet Volume 9.6 FL (9.6-12.0); Neutrophils % 77.7 % (38.7-73.9); Platelet Count 248 T/CUMM (130-400); Red Blood Count 2.62 MC/CUMM (3.8-5.5); Red Cell Distribution Width 16.2 % (9.3-17.3)
[2020-07-26] MEDS ORDERED: MIDAZOLAM 2 MG/2 ML VIAL ONE (22:03)
[2020-07-26] MEDS ORDERED: MIDAZOLAM 2 MG/2 ML VIAL IV ONE (22:03)
[2020-07-26 22:09] LABS: Calcium 7.3 MG/DL (8.5-10.1); Osmolality,Calculated 283.1 MOS/KG (273-304); Potassium 4.5 MMOL/L (3.5-5.1)
[2020-07-26 22:13] LABS: ABG Base Excess 5.2 MMOL/L (-2.5-2.5); ABG HCO3 29.2 MMOL/L (20-26); ABG PCO2 38.1 MM HG (35-48); ABG PH 7.488 (7.35-7.45); ABG TCO2 26.7 MMOL/L (23-27); Allen Test Positive; Pt O2 Delivery Device Ventilator
[2020-07-26] MEDS: MIDAZOLAM 100 MG in SODIUM CHLORIDE 0.9% 80 ML IV PRN (22:32)
[2020-07-26 22:34] LABS: White Blood Count 14.5 T/CUMM (4-12)
[2020-07-26] MEDS: ROSUVASTATIN 10 MG TABLET PO SCH (23:13)
[2020-07-27] MEDS: SODIUM CHLORIDE 0.9% 1,000 ML IV SCH ×3 (00:52→15:48)
[2020-07-27 04:11] LABS: ABG Base Excess 6.8 MMOL/L (-2.5-2.5); ABG HCO3 26.9 MMOL/L (20-26); ABG Oxygen Saturation 99.1 % (95-100); ABG PCO2 22.7 MM HG (35-48); ABG PO2 205.2 MM HG (80-95); ABG TCO2 27.6 MMOL/L (23-27)
[2020-07-27 04:13] LABS: ABG PH 7.691 (7.35-7.45)
[2020-07-27 06:28] LABS: Basophils % 0.3 % (0.0-0.8); Eosinophils # 0.1 10*3/uL (0.0-0.87); Eosinophils % 0.5 % (0.00-10.9); Hematocrit 24.2 VOL% (42.0-52.0); Hemoglobin 7.8 GM/DL (14.0-18.0); Immature Granulocytes % 0.7 %; Immature Granulocytes Absolute 0.08 #; Lymphocytes # 0.7 10*3/uL (1.4-4.0); Lymphocytes % 5.9 % (21.2-54.2); Mean Corpuscular HGB Conc 32.2 GM/DL (32-36); Mean Corpuscular Volume 101.3 FL (87-102); Mean Platelet Volume 9.9 FL (9.6-12.0); Monocytes % 4.4 % (1.7-12.7); Neutrophils % 88.2 % (38.7-73.9); Platelet Count 209 T/CUMM (130-400); Red Blood Count 2.39 MC/CUMM (3.8-5.5); Red Cell Distribution Width 15.9 % (9.3-17.3)
[2020-07-27 06:46] LABS: Calcium 7.5 MG/DL (8.5-10.1); Potassium 3.7 MMOL/L (3.5-5.1)
[2020-07-27 07:23] LABS: ABG Base Excess 7.4 MMOL/L (-2.5-2.5); ABG HCO3 31.3 MMOL/L (20-26); ABG PCO2 36.9 MM HG (35-48); ABG PH 7.527 (7.35-7.45); ABG TCO2 28.6 MMOL/L (23-27); Allen Test Positive; Pt O2 Delivery Device Ventilator
[2020-07-27] MEDS: methylPREDNISolone SOD SUC 40 MG/1 ML VIAL IV SCH ×2 (07:45→20:57)
[2020-07-27] MEDS: carvediloL 12.5 MG TABLET PO SCH ×2 (07:46→16:49)
[2020-07-27] MEDS: DOCUSATE SODIUM 100 MG CAPSULE PO SCH ×2 (09:23→20:57)
[2020-07-27] MEDS: APIXABAN 2.5 MG TABLET PO SCH ×2 (09:23→20:57)
[2020-07-27] MEDS: CETIRIZINE 10 MG TABLET PO SCH (09:23)
[2020-07-27] MEDS: ASPIRIN EC 81 MG TABLET PO SCH (09:23)
[2020-07-27] MEDS: amLODIPine 5 MG TABLET PO SCH (09:24)
[2020-07-27] MEDS: PSYLLIUM POWDER 3.7 GM/PACK PO SCH ×2 (09:24→20:57)
[2020-07-27 09:46] LABS: Hematocrit 24.3 VOL% (42.0-52.0); Hemoglobin 7.7 GM/DL (14.0-18.0)
[2020-07-27] MEDS ORDERED: SODIUM CHLORIDE 0.9% 1,000 ML IV PRN (10:25)
[2020-07-27] MEDS ORDERED: ALBUTEROL/IPRATROPIUM 3 ML NEB RESP TX PRN (13:36)
[2020-07-27] MEDS: cefTRIAXone 1,000 MG in SODIUM CHLORIDE 0.9% 100 ML IV SCH (14:25)
[2020-07-27] MEDS: ROSUVASTATIN 10 MG TABLET PO SCH (20:57)
[2020-07-28] MEDS: MIDAZOLAM 100 MG in SODIUM CHLORIDE 0.9% 80 ML IV PRN (01:48)
[2020-07-28 03:56] LABS: ABG Base Excess 3.2 MMOL/L (-2.5-2.5); ABG HCO3 27.3 MMOL/L (20-26); ABG PCO2 38.6 MM HG (35-48); ABG PH 7.456 (7.35-7.45); Allen Test Positive; Pt O2 Delivery Device Ventilator
[2020-07-28] MEDS: SODIUM CHLORIDE 0.9% 1,000 ML IV SCH (05:08)
[2020-07-28 05:56] LABS: Hematocrit 28.9 VOL% (42.0-52.0); Immature Granulocytes % 0.5 %; Immature Granulocytes Absolute 0.05 #; Lymphocytes # 0.4 10*3/uL (1.4-4.0); Lymphocytes % 4.1 % (21.2-54.2); Mean Corpuscular HGB Conc 33.2 GM/DL (32-36); Monocytes % 2.7 % (1.7-12.7); Neutrophils % 92.7 % (38.7-73.9); Platelet Count 181 T/CUMM (130-400); Red Cell Distribution Width 16.8 % (9.3-17.3); White Blood Count 10.5 T/CUMM (4-12)
[2020-07-28 06:12] LABS: Hemoglobin 9.6 GM/DL (14.0-18.0); Red Blood Count 2.95 MC/CUMM (3.8-5.5)
[2020-07-28 06:28] LABS: Lymphocytes 2 % (20-55); Platelet Estimate Normal; Segmented Neutrophils 97 % (50-85); Total Cells Counted 100
[2020-07-28 06:58] LABS: Albumin 2.2 G/DL (3.4-5.0); Bilirubin,Total 1.2 MG/DL (0.2-1.0); Calcium 7.7 MG/DL (8.5-10.1); Osmolality,Calculated 279.1 MOS/KG (273-304); Potassium 3.6 MMOL/L (3.5-5.1); Total Protein 5.8 G/DL (6.4-8.2)
[2020-07-28] MEDS: methylPREDNISolone SOD SUC 40 MG/1 ML VIAL IV SCH ×2 (07:31→21:26)
[2020-07-28] MEDS: carvediloL 12.5 MG TABLET PO SCH ×2 (07:31→16:46)
[2020-07-28] MEDS ORDERED: FUROSEMIDE 40 MG/4 ML VIAL IV ONE (08:02)
[2020-07-28] MEDS: PSYLLIUM POWDER 3.7 GM/PACK PO SCH ×2 (10:12→21:26)
[2020-07-28] MEDS: DOCUSATE SODIUM 100 MG CAPSULE PO SCH ×2 (10:13→21:26)
[2020-07-28] MEDS: POLYETHYLENE GLYCOL POWDER 17 GM PACK PO SCH (10:13)
[2020-07-28] MEDS: CETIRIZINE 10 MG TABLET PO SCH (10:14)
[2020-07-28] MEDS: amLODIPine 5 MG TABLET PO SCH (10:14)
[2020-07-28] MEDS: APIXABAN 2.5 MG TABLET PO SCH ×2 (10:14→21:26)
[2020-07-28] MEDS: ASPIRIN EC 81 MG TABLET PO SCH (10:14)
[2020-07-28] MEDS: cefTRIAXone 1,000 MG in SODIUM CHLORIDE 0.9% 100 ML IV SCH (14:01)
[2020-07-28] MEDS: INSULIN LISPRO 100 UNIT/ML SUBCUT SCH ×2 (18:16→23:51)
[2020-07-28] MEDS: ROSUVASTATIN 10 MG TABLET PO SCH (21:26)
[2020-07-29 03:59] LABS: ABG Base Excess 4.7 MMOL/L (-2.5-2.5); ABG HCO3 28.7 MMOL/L (20-26); ABG Oxygen Saturation 99.6 % (95-100); ABG PCO2 42.9 MM HG (35-48); ABG PH 7.442 (7.35-7.45); ABG TCO2 26.9 MMOL/L (23-27)
[2020-07-29] MEDS: INSULIN LISPRO 100 UNIT/ML SUBCUT SCH ×2 (06:04→12:29)
[2020-07-29 07:22] LABS: Eosinophils # 0.1 10*3/uL (0.0-0.87); Eosinophils % 0.7 % (0.00-10.9); Hematocrit 27.5 VOL% (42.0-52.0); Hemoglobin 8.9 GM/DL (14.0-18.0); Immature Granulocytes % 0.7 %; Immature Granulocytes Absolute 0.08 #; Lymphocytes # 0.5 10*3/uL (1.4-4.0); Lymphocytes % 4.5 % (21.2-54.2); Mean Corpuscular HGB Conc 32.4 GM/DL (32-36); Mean Corpuscular Volume 100.7 FL (87-102); Mean Platelet Volume 9.4 FL (9.6-12.0); Monocytes % 4.7 % (1.7-12.7); Neutrophils % 89.4 % (38.7-73.9); Platelet Count 209 T/CUMM (130-400); Red Blood Count 2.73 MC/CUMM (3.8-5.5); Red Cell Distribution Width 16.2 % (9.3-17.3); White Blood Count 11.6 T/CUMM (4-12)
[2020-07-29 07:48] LABS: Calcium 7.6 MG/DL (8.5-10.1); Hypochromasia 1+; Lymphocytes 3 % (20-55); Microcytosis 1+; Osmolality,Calculated 291.4 MOS/KG (273-304); Platelet Estimate Adequate; Potassium 3.7 MMOL/L (3.5-5.1); Segmented Neutrophils 95 % (50-85); Total Cells Counted 100
[2020-07-29] MEDS ORDERED: POTASSIUM CHLORIDE 20 MEQ PACK NG ONE (07:56)
[2020-07-29] MEDS: carvediloL 12.5 MG TABLET PO SCH (09:15)
[2020-07-29] MEDS: DOCUSATE SODIUM 100 MG CAPSULE PO SCH ×2 (09:30→20:48)
[2020-07-29] MEDS: methylPREDNISolone SOD SUC 40 MG/1 ML VIAL IV SCH ×2 (09:30→18:38)
[2020-07-29] MEDS: APIXABAN 2.5 MG TABLET PO SCH ×2 (09:30→20:49)
[2020-07-29] MEDS: ASPIRIN EC 81 MG TABLET PO SCH (09:30)
[2020-07-29] MEDS: POLYETHYLENE GLYCOL POWDER 17 GM PACK PO SCH (09:31)
[2020-07-29] MEDS: PSYLLIUM POWDER 3.7 GM/PACK PO SCH ×2 (09:31→20:50)
[2020-07-29] MEDS: amLODIPine 5 MG TABLET PO SCH (09:31)
[2020-07-29] MEDS: CETIRIZINE 10 MG TABLET PO SCH (09:31)
[2020-07-29] MEDS: cefTRIAXone 1,000 MG in SODIUM CHLORIDE 0.9% 100 ML IV SCH (14:45)
[2020-07-29] MEDS: ROSUVASTATIN 10 MG TABLET PO SCH (20:47)
[2020-07-29] MEDS: carvediloL 3.125 MG TABLET PO SCH (20:49)
[2020-07-30 05:51] LABS: Basophils % 0.1 % (0.0-0.8); Hematocrit 32.7 VOL% (42.0-52.0); Hemoglobin 10.1 GM/DL (14.0-18.0); Immature Granulocytes Absolute 0.13 #; Lymphocytes # 0.5 10*3/uL (1.4-4.0); Lymphocytes % 3.5 % (21.2-54.2); Mean Corpuscular HGB Conc 30.9 GM/DL (32-36); Mean Corpuscular Volume 103.2 FL (87-102); Monocytes % 6.1 % (1.7-12.7); Neutrophils % 89.3 % (38.7-73.9); Platelet Count 254 T/CUMM (130-400); Red Blood Count 3.17 MC/CUMM (3.8-5.5); Red Cell Distribution Width 15.9 % (9.3-17.3); White Blood Count 13.3 T/CUMM (4-12)
[2020-07-30 06:17] LABS: Eosinophils 1 % (0-10); Hypochromasia 1+; Lymphocytes 2 % (20-55); Microcytosis 1+; Ovalocytes Slight; Platelet Estimate Adequate; Segmented Neutrophils 92 % (50-85); Total Cells Counted 100
[2020-07-30 06:29] LABS: Calcium 8.6 MG/DL (8.5-10.1); Osmolality,Calculated 291.4 MOS/KG (273-304); Potassium 4.7 MMOL/L (3.5-5.1)
[2020-07-30] MEDS ORDERED: FUROSEMIDE 40 MG/4 ML VIAL IV ONE (07:40)
[2020-07-30] MEDS ORDERED: FUROSEMIDE 40 MG/4 ML VIAL ONE (07:41)
[2020-07-30] MEDS: ALBUTEROL/IPRATROPIUM 3 ML NEB RESP TX SCH ×5 (07:55→23:20)
[2020-07-30] MEDS ORDERED: ALBUTEROL/IPRATROPIUM 3 ML NEB RESP TX SCH (08:00)
[2020-07-30] MEDS: ASPIRIN EC 81 MG TABLET PO SCH (08:16)
[2020-07-30] MEDS: DOCUSATE SODIUM 100 MG CAPSULE PO SCH ×2 (08:16→20:41)
[2020-07-30] MEDS: APIXABAN 2.5 MG TABLET PO SCH ×2 (08:16→20:42)
[2020-07-30] MEDS: CETIRIZINE 10 MG TABLET PO SCH (08:16)
[2020-07-30] MEDS: carvediloL 3.125 MG TABLET PO SCH (08:16)
[2020-07-30] MEDS: methylPREDNISolone SOD SUC 40 MG/1 ML VIAL IV SCH ×2 (08:16→20:19)
[2020-07-30] MEDS: PSYLLIUM POWDER 3.7 GM/PACK PO SCH ×2 (08:16→21:35)
[2020-07-30] MEDS: amLODIPine 5 MG TABLET PO SCH (08:16)
[2020-07-30] MEDS: POLYETHYLENE GLYCOL POWDER 17 GM PACK PO SCH (08:16)
[2020-07-30] MEDS: MORPHINE 4 MG/1 ML VIAL IV PRN ×2 (08:17→23:55)
[2020-07-30] MEDS ORDERED: carvediloL 3.125 MG TABLET PO ONE (09:03)
[2020-07-30] MEDS ORDERED: PHENOL 1.4% THROAT SPRAY 177 ML BOTTLE PO PRN (10:21)
[2020-07-30] MEDS: ROSUVASTATIN 10 MG TABLET PO SCH (20:41)
[2020-07-30] MEDS: AMITRIPTYLINE 75 MG TABLET PO SCH (20:41)
[2020-07-30] MEDS: CALCIUM (CARBONATE)/VITAMIN D 600 MG-400 UNIT TABLET PO SCH (20:41)
[2020-07-30] MEDS: carvediloL 6.25 MG TABLET PO SCH (20:41)
[2020-07-31] MEDS: ALBUTEROL/IPRATROPIUM 3 ML NEB RESP TX SCH ×4 (02:46→19:46)
[2020-07-31 05:39] LABS: Hematocrit 32.6 VOL% (42.0-52.0); Hemoglobin 10.1 GM/DL (14.0-18.0); Immature Granulocytes % 0.8 %; Immature Granulocytes Absolute 0.08 #; Lymphocytes # 0.5 10*3/uL (1.4-4.0); Lymphocytes % 5.1 % (21.2-54.2); Mean Corpuscular Volume 101.9 FL (87-102); Mean Platelet Volume 9.8 FL (9.6-12.0); Neutrophils % 88.1 % (38.7-73.9); Platelet Count 237 T/CUMM (130-400); Red Cell Distribution Width 15.6 % (9.3-17.3); White Blood Count 10.4 T/CUMM (4-12)
[2020-07-31 05:53] LABS: Calcium 8.9 MG/DL (8.5-10.1); Osmolality,Calculated 290.5 MOS/KG (273-304); Potassium 4.7 MMOL/L (3.5-5.1)
[2020-07-31 06:02] LABS: Hypochromasia 1+; Lymphocytes 3 % (20-55); Microcytosis 1+; Promyelocytes 1 %; Segmented Neutrophils 94 % (50-85); Total Cells Counted 100
[2020-07-31 06:03] LABS: Platelet Estimate Normal
[2020-07-31] MEDS: methylPREDNISolone SOD SUC 40 MG/1 ML VIAL IV SCH (06:31)
[2020-07-31] MEDS: PSYLLIUM POWDER 3.7 GM/PACK PO SCH ×2 (09:16→20:24)
[2020-07-31] MEDS: POLYETHYLENE GLYCOL POWDER 17 GM PACK PO SCH (09:16)
[2020-07-31] MEDS: DOCUSATE SODIUM 100 MG CAPSULE PO SCH ×2 (09:16→20:23)
[2020-07-31] MEDS: carvediloL 6.25 MG TABLET PO SCH (09:16)
[2020-07-31] MEDS: ASPIRIN EC 81 MG TABLET PO SCH (09:16)
[2020-07-31] MEDS: amLODIPine 5 MG TABLET PO SCH (09:16)
[2020-07-31] MEDS: MULTIVITAMIN (CENTRUM) TABLET PO SCH (09:16)
[2020-07-31] MEDS: CETIRIZINE 10 MG TABLET PO SCH (09:17)
[2020-07-31] MEDS: ASCORBIC ACID 500 MG TABLET PO SCH (09:17)
[2020-07-31] MEDS: APIXABAN 2.5 MG TABLET PO SCH ×2 (09:17→20:24)
[2020-07-31] MEDS: FINASTERIDE 5 MG TABLET PO SCH (09:18)
[2020-07-31] MEDS ORDERED: carvediloL 6.25 MG TABLET PO ONE (12:37)
[2020-07-31] MEDS ORDERED: amLODIPine 5 MG TABLET PO ONE (12:44)
[2020-07-31] MEDS: CALCIUM (CARBONATE)/VITAMIN D 600 MG-400 UNIT TABLET PO SCH (20:23)
[2020-07-31] MEDS: AMITRIPTYLINE 75 MG TABLET PO SCH (20:24)
[2020-07-31] MEDS: ROSUVASTATIN 10 MG TABLET PO SCH (20:24)
[2020-07-31] MEDS ORDERED: methylPREDNISolone SOD SUC 40 MG/1 ML VIAL IV SCH (21:00)
[2020-07-31] MEDS ORDERED: carvediloL 12.5 MG TABLET PO SCH (21:00)
[2020-07-31] MEDS: INSULIN LISPRO 100 UNIT/ML SUBCUT SCH (21:25)
[2020-08-01] MEDS: ALBUTEROL/IPRATROPIUM 3 ML NEB RESP TX SCH ×7 (00:18→22:45)
[2020-08-01 07:31] LABS: Basophils % 0.1 % (0.0-0.8); Eosinophils % 0.1 % (0.00-10.9); Hematocrit 31.6 VOL% (42.0-52.0); Hemoglobin 9.7 GM/DL (14.0-18.0); Immature Granulocytes % 1.1 %; Immature Granulocytes Absolute 0.17 #; Lymphocytes # 0.5 10*3/uL (1.4-4.0); Lymphocytes % 3.5 % (21.2-54.2); Mean Corpuscular HGB Conc 30.7 GM/DL (32-36); Mean Corpuscular Volume 104.3 FL (87-102); Mean Platelet Volume 9.9 FL (9.6-12.0); Monocytes % 4.5 % (1.7-12.7); Neutrophils % 90.7 % (38.7-73.9); Platelet Count 264 T/CUMM (130-400); Red Blood Count 3.03 MC/CUMM (3.8-5.5); Red Cell Distribution Width 15.4 % (9.3-17.3); White Blood Count 15.6 T/CUMM (4-12)
[2020-08-01 07:50] LABS: Hypochromasia 1+; Lymphocytes 3 % (20-55); Microcytosis 1+; Segmented Neutrophils 94 % (50-85); Total Cells Counted 100
[2020-08-01 07:51] LABS: Platelet Estimate Normal
[2020-08-01 08:08] LABS: Calcium 9.3 MG/DL (8.5-10.1); Osmolality,Calculated 294.4 MOS/KG (273-304); Potassium 4.9 MMOL/L (3.5-5.1)
[2020-08-01] MEDS: INSULIN LISPRO 100 UNIT/ML SUBCUT SCH ×4 (08:16→21:57)
[2020-08-01] MEDS: POLYETHYLENE GLYCOL POWDER 17 GM PACK PO SCH (08:53)
[2020-08-01] MEDS: APIXABAN 2.5 MG TABLET PO SCH ×2 (08:53→21:52)
[2020-08-01] MEDS: ASCORBIC ACID 500 MG TABLET PO SCH (08:53)
[2020-08-01] MEDS: FUROSEMIDE 40 MG TABLET PO SCH (08:53)
[2020-08-01] MEDS: MULTIVITAMIN (CENTRUM) TABLET PO SCH (08:53)
[2020-08-01] MEDS: CETIRIZINE 10 MG TABLET PO SCH (08:53)
[2020-08-01] MEDS: predniSONE 10 MG TABLET PO SCH (08:53)
[2020-08-01] MEDS: ASPIRIN EC 81 MG TABLET PO SCH (08:53)
[2020-08-01] MEDS: FINASTERIDE 5 MG TABLET PO SCH (08:53)
[2020-08-01] MEDS: DOCUSATE SODIUM 100 MG CAPSULE PO SCH ×2 (08:53→21:52)
[2020-08-01] MEDS: PSYLLIUM POWDER 3.7 GM/PACK PO SCH ×2 (08:53→21:52)
[2020-08-01] MEDS ORDERED: amLODIPine 5 MG TABLET PO SCH (09:00)
[2020-08-01] MEDS ORDERED: LORazepam 1 MG TABLET PO PRN (09:12)
[2020-08-01] MEDS ORDERED: TUBERCULIN SKIN TEST 0.1 ML SYRINGE INTRADERM ONE (17:14)
[2020-08-01] MEDS: AMITRIPTYLINE 75 MG TABLET PO SCH (21:52)
[2020-08-01] MEDS: CALCIUM (CARBONATE)/VITAMIN D 600 MG-400 UNIT TABLET PO SCH (21:52)
[2020-08-01] MEDS: ROSUVASTATIN 10 MG TABLET PO SCH (21:52)
[2020-08-02] MEDS: ALBUTEROL/IPRATROPIUM 3 ML NEB RESP TX SCH ×6 (03:00→23:21)
[2020-08-02 05:01] LABS: Basophils % 0.1 % (0.0-0.8); Eosinophils # 0.7 10*3/uL (0.0-0.87); Eosinophils % 4.9 % (0.00-10.9); Hematocrit 32.3 VOL% (42.0-52.0); Hemoglobin 9.8 GM/DL (14.0-18.0); Immature Granulocytes % 3.1 %; Immature Granulocytes Absolute 0.47 #; Lymphocytes # 1.5 10*3/uL (1.4-4.0); Lymphocytes % 9.7 % (21.2-54.2); Mean Corpuscular HGB Conc 30.3 GM/DL (32-36); Mean Corpuscular Volume 104.2 FL (87-102); Mean Platelet Volume 9.2 FL (9.6-12.0); Neutrophils % 74.2 % (38.7-73.9); Platelet Count 277 T/CUMM (130-400); Red Cell Distribution Width 15.4 % (9.3-17.3); White Blood Count 15.1 T/CUMM (4-12)
[2020-08-02 05:26] LABS: Calcium 9.1 MG/DL (8.5-10.1); Osmolality,Calculated 289.3 MOS/KG (273-304)
[2020-08-02] MEDS: INSULIN LISPRO 100 UNIT/ML SUBCUT SCH ×4 (08:07→21:12)
[2020-08-02] MEDS: DOCUSATE SODIUM 100 MG CAPSULE PO SCH ×2 (10:03→21:10)
[2020-08-02] MEDS: ASCORBIC ACID 500 MG TABLET PO SCH (10:03)
[2020-08-02] MEDS: predniSONE 10 MG TABLET PO SCH (10:04)
[2020-08-02] MEDS: TAMSULOSIN 0.4 MG CAPSULE PO SCH (10:04)
[2020-08-02] MEDS: FINASTERIDE 5 MG TABLET PO SCH (10:05)
[2020-08-02] MEDS: CETIRIZINE 10 MG TABLET PO SCH (10:05)
[2020-08-02] MEDS: MULTIVITAMIN (CENTRUM) TABLET PO SCH (10:05)
[2020-08-02] MEDS: POLYETHYLENE GLYCOL POWDER 17 GM PACK PO SCH (10:05)
[2020-08-02] MEDS: ASPIRIN EC 81 MG TABLET PO SCH (10:05)
[2020-08-02] MEDS: PSYLLIUM POWDER 3.7 GM/PACK PO SCH ×2 (10:05→21:07)
[2020-08-02] MEDS: APIXABAN 2.5 MG TABLET PO SCH ×2 (10:06→21:10)
[2020-08-02] MEDS: amLODIPine 5 MG TABLET PO SCH (10:06)
[2020-08-02] MEDS: FUROSEMIDE 40 MG TABLET PO SCH (10:06)
[2020-08-02] MEDS: CALCIUM (CARBONATE)/VITAMIN D 600 MG-400 UNIT TABLET PO SCH (21:10)
[2020-08-02] MEDS: CLORAZEPATE 3.75 MG TABLET PO PRN (21:10)
[2020-08-02] MEDS: ROSUVASTATIN 10 MG TABLET PO SCH (21:10)
[2020-08-02] MEDS: AMITRIPTYLINE 75 MG TABLET PO SCH (21:11)
[2020-08-03] MEDS: ALBUTEROL/IPRATROPIUM 3 ML NEB RESP TX SCH ×7 (02:59→23:23)
[2020-08-03 05:35] LABS: Basophils % 0.1 % (0.0-0.8); Eosinophils # 0.5 10*3/uL (0.0-0.87); Eosinophils % 4.5 % (0.00-10.9); Hemoglobin 9.4 GM/DL (14.0-18.0); Immature Granulocytes % 2.5 %; Immature Granulocytes Absolute 0.26 #; Lymphocytes # 1.3 10*3/uL (1.4-4.0); Lymphocytes % 12.7 % (21.2-54.2); Mean Corpuscular HGB Conc 31.3 GM/DL (32-36); Mean Corpuscular Volume 103.1 FL (87-102); Mean Platelet Volume 9.9 FL (9.6-12.0); Monocytes % 7.8 % (1.7-12.7); Neutrophils % 72.4 % (38.7-73.9); Platelet Count 236 T/CUMM (130-400); Red Blood Count 2.91 MC/CUMM (3.8-5.5); Red Cell Distribution Width 15.3 % (9.3-17.3); White Blood Count 10.6 T/CUMM (4-12)
[2020-08-03 05:45] LABS: Calcium 8.8 MG/DL (8.5-10.1); Osmolality,Calculated 279.7 MOS/KG (273-304)
[2020-08-03 05:53] LABS: Potassium 3.7 MMOL/L (3.5-5.1)
[2020-08-03] MEDS: INSULIN LISPRO 100 UNIT/ML SUBCUT SCH ×4 (08:05→21:23)
[2020-08-03] MEDS: FUROSEMIDE 40 MG TABLET PO SCH (09:20)
[2020-08-03] MEDS: predniSONE 10 MG TABLET PO SCH (09:20)
[2020-08-03] MEDS: amLODIPine 5 MG TABLET PO SCH (09:20)
[2020-08-03] MEDS: ASCORBIC ACID 500 MG TABLET PO SCH (09:20)
[2020-08-03] MEDS: DOCUSATE SODIUM 100 MG CAPSULE PO SCH ×2 (09:20→21:23)
[2020-08-03] MEDS: TAMSULOSIN 0.4 MG CAPSULE PO SCH (09:20)
[2020-08-03] MEDS: POLYETHYLENE GLYCOL POWDER 17 GM PACK PO SCH (09:21)
[2020-08-03] MEDS: APIXABAN 2.5 MG TABLET PO SCH ×2 (09:21→21:22)
[2020-08-03] MEDS: MULTIVITAMIN (CENTRUM) TABLET PO SCH (09:21)
[2020-08-03] MEDS: CETIRIZINE 10 MG TABLET PO SCH (09:21)
[2020-08-03] MEDS: FINASTERIDE 5 MG TABLET PO SCH (09:21)
[2020-08-03] MEDS: ASPIRIN EC 81 MG TABLET PO SCH (09:21)
[2020-08-03] MEDS: PSYLLIUM POWDER 3.7 GM/PACK PO SCH ×2 (10:05→21:23)
[2020-08-03] MEDS ORDERED: LACTULOSE 20 GM/30 ML UDCUP PO ONE (10:10)
[2020-08-03] MEDS: CALCIUM (CARBONATE)/VITAMIN D 600 MG-400 UNIT TABLET PO SCH (21:22)
[2020-08-03] MEDS: ROSUVASTATIN 10 MG TABLET PO SCH (21:22)
[2020-08-03] MEDS: AMITRIPTYLINE 75 MG TABLET PO SCH (21:23)
[2020-08-03] MEDS: CLORAZEPATE 3.75 MG TABLET PO PRN (21:40)
[2020-08-04] MEDS: ALBUTEROL/IPRATROPIUM 3 ML NEB RESP TX SCH ×6 (03:06→23:04)
[2020-08-04 04:51] LABS: Eosinophils # 0.5 10*3/uL (0.0-0.87); Eosinophils % 5.5 % (0.00-10.9); Hematocrit 30.6 VOL% (42.0-52.0); Hemoglobin 9.4 GM/DL (14.0-18.0); Immature Granulocytes Absolute 0.38 #; Lymphocytes # 1.3 10*3/uL (1.4-4.0); Lymphocytes % 13.3 % (21.2-54.2); Mean Corpuscular HGB Conc 30.7 GM/DL (32-36); Mean Platelet Volume 9.7 FL (9.6-12.0); Monocytes % 7.4 % (1.7-12.7); Neutrophils % 69.8 % (38.7-73.9); Platelet Count 250 T/CUMM (130-400); Red Blood Count 2.97 MC/CUMM (3.8-5.5); Red Cell Distribution Width 15.2 % (9.3-17.3); White Blood Count 9.4 T/CUMM (4-12)
[2020-08-04 05:04] LABS: Calcium 8.9 MG/DL (8.5-10.1); Osmolality,Calculated 281.4 MOS/KG (273-304); Potassium 3.9 MMOL/L (3.5-5.1)
[2020-08-04] MEDS: FINASTERIDE 5 MG TABLET PO SCH (09:26)
[2020-08-04] MEDS: ASCORBIC ACID 500 MG TABLET PO SCH (09:26)
[2020-08-04] MEDS: APIXABAN 2.5 MG TABLET PO SCH ×2 (09:26→21:02)
[2020-08-04] MEDS: ASPIRIN EC 81 MG TABLET PO SCH (09:26)
[2020-08-04] MEDS: MULTIVITAMIN (CENTRUM) TABLET PO SCH (09:26)
[2020-08-04] MEDS: FUROSEMIDE 40 MG TABLET PO SCH (09:26)
[2020-08-04] MEDS: DOCUSATE SODIUM 100 MG CAPSULE PO SCH ×2 (09:26→21:02)
[2020-08-04] MEDS: TAMSULOSIN 0.4 MG CAPSULE PO SCH (09:26)
[2020-08-04] MEDS: CETIRIZINE 10 MG TABLET PO SCH (09:26)
[2020-08-04] MEDS: PSYLLIUM POWDER 3.7 GM/PACK PO SCH ×2 (09:27→21:00)
[2020-08-04] MEDS: POLYETHYLENE GLYCOL POWDER 17 GM PACK PO SCH (09:27)
[2020-08-04] MEDS: predniSONE 10 MG TABLET PO SCH (10:18)
[2020-08-04] MEDS: amLODIPine 5 MG TABLET PO SCH (10:18)
[2020-08-04] MEDS: INSULIN LISPRO 100 UNIT/ML SUBCUT SCH ×4 (11:07→21:03)
[2020-08-04] MEDS ORDERED: traMADol 50 MG TABLET PO PRN (13:18)
[2020-08-04] MEDS ORDERED: SODIUM PHOSPHATE ENEMA 133 ML BOTTLE RECTAL ONE (14:00)
[2020-08-04] MEDS ORDERED: ZINC OXIDE PASTE 113 GM TUBE TOP PRN (16:22)
[2020-08-04] MEDS: AMITRIPTYLINE 75 MG TABLET PO SCH (21:02)
[2020-08-04] MEDS: CALCIUM (CARBONATE)/VITAMIN D 600 MG-400 UNIT TABLET PO SCH (21:02)
[2020-08-04] MEDS: ROSUVASTATIN 10 MG TABLET PO SCH (21:02)
[2020-08-05] MEDS: ALBUTEROL/IPRATROPIUM 3 ML NEB RESP TX SCH ×5 (04:15→19:16)
[2020-08-05 06:50] LABS: Basophils % 0.2 % (0.0-0.8); Eosinophils # 0.5 10*3/uL (0.0-0.87); Eosinophils % 3.7 % (0.00-10.9); Hematocrit 32.9 VOL% (42.0-52.0); Immature Granulocytes % 4.2 %; Immature Granulocytes Absolute 0.53 #; Lymphocytes # 1.2 10*3/uL (1.4-4.0); Lymphocytes % 9.2 % (21.2-54.2); Mean Corpuscular HGB Conc 30.4 GM/DL (32-36); Mean Corpuscular Volume 103.5 FL (87-102); Mean Platelet Volume 9.8 FL (9.6-12.0); Monocytes % 6.9 % (1.7-12.7); Neutrophils % 75.8 % (38.7-73.9); Platelet Count 285 T/CUMM (130-400); Red Blood Count 3.18 MC/CUMM (3.8-5.5); Red Cell Distribution Width 15.1 % (9.3-17.3); White Blood Count 12.6 T/CUMM (4-12)
[2020-08-05 07:03] LABS: Calcium 9.2 MG/DL (8.5-10.1); Osmolality,Calculated 279.5 MOS/KG (273-304); Potassium 3.5 MMOL/L (3.5-5.1)
[2020-08-05 07:22] LABS: Eosinophils 7 % (0-10); Hypochromasia 1+; Lymphocytes 11 % (20-55); Segmented Neutrophils 78 % (50-85); Total Cells Counted 100
[2020-08-05 07:23] LABS: Microcytosis 1+; Platelet Estimate Normal
[2020-08-05] MEDS: INSULIN LISPRO 100 UNIT/ML SUBCUT SCH ×4 (08:43→22:44)
[2020-08-05] MEDS: CETIRIZINE 10 MG TABLET PO SCH (09:44)
[2020-08-05] MEDS: PSYLLIUM POWDER 3.7 GM/PACK PO SCH ×2 (09:44→22:44)
[2020-08-05] MEDS: FINASTERIDE 5 MG TABLET PO SCH (09:44)
[2020-08-05] MEDS: POLYETHYLENE GLYCOL POWDER 17 GM PACK PO SCH (09:44)
[2020-08-05] MEDS: amLODIPine 5 MG TABLET PO SCH (09:44)
[2020-08-05] MEDS: ASPIRIN EC 81 MG TABLET PO SCH (09:44)
[2020-08-05] MEDS: MULTIVITAMIN (CENTRUM) TABLET PO SCH (09:44)
[2020-08-05] MEDS: DOCUSATE SODIUM 100 MG CAPSULE PO SCH ×2 (09:45→22:43)
[2020-08-05] MEDS: predniSONE 10 MG TABLET PO SCH (09:45)
[2020-08-05] MEDS: ASCORBIC ACID 500 MG TABLET PO SCH (09:45)
[2020-08-05] MEDS: FUROSEMIDE 40 MG TABLET PO SCH (09:45)
[2020-08-05] MEDS: APIXABAN 2.5 MG TABLET PO SCH ×2 (09:45→22:43)
[2020-08-05] MEDS: TAMSULOSIN 0.4 MG CAPSULE PO SCH (09:45)
[2020-08-05] MEDS: CALCIUM (CARBONATE)/VITAMIN D 600 MG-400 UNIT TABLET PO SCH (22:43)
[2020-08-05] MEDS: AMITRIPTYLINE 75 MG TABLET PO SCH (22:43)
[2020-08-05] MEDS: ROSUVASTATIN 10 MG TABLET PO SCH (22:43)
[2020-08-06] MEDS: ALBUTEROL/IPRATROPIUM 3 ML NEB RESP TX SCH ×4 (00:48→10:30)
[2020-08-06] MEDS: CLORAZEPATE 3.75 MG TABLET PO PRN (00:55)
[2020-08-06] MEDS: INSULIN LISPRO 100 UNIT/ML SUBCUT SCH ×3 (08:41→16:14)
[2020-08-06] MEDS: PSYLLIUM POWDER 3.7 GM/PACK PO SCH (09:47)
[2020-08-06] MEDS: POLYETHYLENE GLYCOL POWDER 17 GM PACK PO SCH (09:47)
[2020-08-06] MEDS: APIXABAN 2.5 MG TABLET PO SCH (09:48)
[2020-08-06] MEDS: MULTIVITAMIN (CENTRUM) TABLET PO SCH (09:48)
[2020-08-06] MEDS: ASCORBIC ACID 500 MG TABLET PO SCH (09:48)
[2020-08-06] MEDS: ASPIRIN EC 81 MG TABLET PO SCH (09:48)
[2020-08-06] MEDS: predniSONE 10 MG TABLET PO SCH (09:48)
[2020-08-06] MEDS: FINASTERIDE 5 MG TABLET PO SCH (09:48)
[2020-08-06] MEDS: FUROSEMIDE 40 MG TABLET PO SCH (09:48)
[2020-08-06] MEDS: CETIRIZINE 10 MG TABLET PO SCH (09:48)
[2020-08-06] MEDS: amLODIPine 5 MG TABLET PO SCH (09:48)
[2020-08-06] MEDS: DOCUSATE SODIUM 100 MG CAPSULE PO SCH (09:48)
[2020-08-06] MEDS: TAMSULOSIN 0.4 MG CAPSULE PO SCH (09:49)
[2020-08-06 12:08] VITALS: BP 191/81
== END 2020-08-06 17:05 | disposition swing bed (61) | DRG 308 ==
LOC: N.EDINP 00:03 → N.ED 00:03 → SUATTDRO 04:09 → N.EDINP 08:30 → N.TELEN 08:52 → N.ICU 07-26 21:31 → SUATTDRO 07-27 11:41 → N.TELEN 07-31 17:29
PROVIDERS: ADMIT Internal Medicine; ATTEND Internal Medicine Geriatric Medicine

== ENCOUNTER 2020-09-06 11:52 | Observation (INO) ==
[2020-09-06] MEDS ORDERED: GLUCAGON 1 MG VIAL IM PRN (15:11)
[2020-09-06] MEDS ORDERED: DEXTROSE 50% 25 GM/50 ML VIAL IV PRN (15:11)
[2020-09-06] MEDS ORDERED: ACETAMINOPHEN 325 MG TABLET PO PRN (15:11)
[2020-09-06] MEDS ORDERED: ONDANSETRON 4 MG/2 ML VIAL IV PRN (15:11)
[2020-09-06] MEDS ORDERED: FUROSEMIDE 40 MG/4 ML VIAL IV ONE (15:15)
[2020-09-06] MEDS ORDERED: methylPREDNISolone SOD SUC 40 MG/1 ML VIAL IV SCH (15:30)
[2020-09-06 16:51] LABS: ABG HCO3 35.8 MMOL/L (20-26); ABG Oxygen Saturation 99.2 % (95-100); ABG PH 7.301 (7.35-7.45); ABG TCO2 38.5 MMOL/L (23-27)
[2020-09-06 16:56] LABS: ABG PCO2 85.2 MM HG (35-48)
[2020-09-06] MEDS ORDERED: ALBUTEROL/IPRATROPIUM 3 ML NEB RESP TX SCH (19:00)
[2020-09-06 20:33] LABS: ABG Base Excess 13.8 MMOL/L (-2.5-2.5); ABG HCO3 37.6 MMOL/L (20-26); ABG Oxygen Saturation 95.8 % (95-100); ABG PO2 83.6 MM HG (80-95); ABG TCO2 39.2 MMOL/L (23-27); Allen Test Positive; Pt O2 Delivery Device BIPAP
[2020-09-06] MEDS: ALBUTEROL/IPRATROPIUM 3 ML NEB RESP TX SCH (20:35)
[2020-09-06 20:38] LABS: ABG PH 7.351 (7.35-7.45)
[2020-09-06] MEDS ORDERED: FUROSEMIDE 40 MG/4 ML VIAL IV SCH (21:00)
[2020-09-06] MEDS ORDERED: AMITRIPTYLINE 75 MG TABLET PO SCH (21:00)
[2020-09-06] MEDS ORDERED: TEMAZEPAM 15 MG CAPSULE PO ONE (21:00)
[2020-09-06] MEDS: APIXABAN 2.5 MG TABLET PO SCH (21:44)
[2020-09-06] MEDS: DOCUSATE SODIUM 100 MG CAPSULE PO SCH (21:44)
[2020-09-06] MEDS: carvediloL 12.5 MG TABLET PO SCH (21:44)
[2020-09-06] MEDS: methylPREDNISolone SOD SUC 40 MG/1 ML VIAL IV SCH (21:45)
[2020-09-06] MEDS: FERROUS SULFATE 325 MG TABLET PO SCH (21:45)
[2020-09-06] MEDS: FUROSEMIDE 40 MG/4 ML VIAL IV SCH (21:45)
[2020-09-07] MEDS: ALBUTEROL/IPRATROPIUM 3 ML NEB RESP TX SCH ×7 (01:59→22:30)
[2020-09-07] MEDS: methylPREDNISolone SOD SUC 40 MG/1 ML VIAL IV SCH ×2 (05:12→08:47)
[2020-09-07 06:34] LABS: Hematocrit 30.4 VOL% (42.0-52.0); Hemoglobin 9.4 GM/DL (14.0-18.0); Immature Granulocytes % 0.5 %; Immature Granulocytes Absolute 0.03 #; Lymphocytes # 0.6 10*3/uL (1.4-4.0); Lymphocytes % 9.4 % (21.2-54.2); Mean Corpuscular HGB Conc 30.9 GM/DL (32-36); Mean Corpuscular Volume 98.7 FL (87-102); Mean Platelet Volume 9.5 FL (9.6-12.0); Monocytes % 3.2 % (1.7-12.7); Neutrophils % 86.9 % (38.7-73.9); Platelet Count 273 T/CUMM (130-400); Red Blood Count 3.08 MC/CUMM (3.8-5.5); Red Cell Distribution Width 15.4 % (9.3-17.3); White Blood Count 6.3 T/CUMM (4-12)
[2020-09-07 07:03] LABS: Albumin 2.5 G/DL (3.4-5.0); Bilirubin,Total 0.6 MG/DL (0.20-1.00); Calcium 8.5 MG/DL (8.5-10.1); Osmolality,Calculated 276.1 MOS/KG (273-304); Total Protein 6.2 G/DL (6.4-8.2)
[2020-09-07] MEDS: POLYETHYLENE GLYCOL POWDER 17 GM PACK PO SCH (08:41)
[2020-09-07] MEDS: ASPIRIN EC 81 MG TABLET PO SCH (08:42)
[2020-09-07] MEDS: ATORVASTATIN 40 MG TABLET PO SCH (08:42)
[2020-09-07] MEDS: PANTOPRAZOLE 40 MG TABLET PO SCH (08:42)
[2020-09-07] MEDS: TAMSULOSIN 0.4 MG CAPSULE PO SCH (08:42)
[2020-09-07] MEDS: carvediloL 12.5 MG TABLET PO SCH ×2 (08:42→21:20)
[2020-09-07] MEDS: amLODIPine 5 MG TABLET PO SCH (08:42)
[2020-09-07] MEDS: APIXABAN 2.5 MG TABLET PO SCH ×2 (08:42→21:20)
[2020-09-07] MEDS: FINASTERIDE 5 MG TABLET PO SCH (08:42)
[2020-09-07] MEDS: FERROUS SULFATE 325 MG TABLET PO SCH ×3 (08:42→21:19)
[2020-09-07] MEDS: FUROSEMIDE 40 MG/4 ML VIAL IV SCH ×2 (08:45→15:22)
[2020-09-07] MEDS ORDERED: MAGNESIUM HYDROXIDE SUSP 30 ML UDCUP PO ONE (09:33)
[2020-09-07] MEDS ORDERED: methylPREDNISolone SOD SUC 40 MG/1 ML VIAL IV SCH (10:00)
[2020-09-07] MEDS: OFEV 100 MG PO SCH ×2 (11:34→21:25)
[2020-09-07] MEDS: DOCUSATE SODIUM 100 MG CAPSULE PO SCH (21:19)
[2020-09-07] MEDS ORDERED: TEMAZEPAM 15 MG CAPSULE PO ONE (22:17)
[2020-09-08] MEDS: ALBUTEROL/IPRATROPIUM 3 ML NEB RESP TX SCH ×2 (04:10→07:43)
[2020-09-08 06:23] LABS: Basophils % 0.1 % (0.0-0.8); Eosinophils # 0.1 10*3/uL (0.0-0.87); Eosinophils % 0.7 % (0.00-10.9); Hematocrit 29.4 VOL% (42.0-52.0); Hemoglobin 9.2 GM/DL (14.0-18.0); Immature Granulocytes % 0.6 %; Immature Granulocytes Absolute 0.08 #; Lymphocytes # 1.2 10*3/uL (1.4-4.0); Lymphocytes % 8.7 % (21.2-54.2); Mean Corpuscular HGB Conc 31.3 GM/DL (32-36); Mean Corpuscular Volume 99.7 FL (87-102); Mean Platelet Volume 9.9 FL (9.6-12.0); Monocytes % 6.8 % (1.7-12.7); Neutrophils % 83.1 % (38.7-73.9); Platelet Count 290 T/CUMM (130-400); Red Blood Count 2.95 MC/CUMM (3.8-5.5); Red Cell Distribution Width 15.9 % (9.3-17.3); White Blood Count 13.3 T/CUMM (4-12)
[2020-09-08 06:36] LABS: Calcium 8.4 MG/DL (8.5-10.1); Osmolality,Calculated 281.8 MOS/KG (273-304)
[2020-09-08 08:34] VITALS: BP 139/63
[2020-09-08] MEDS: FINASTERIDE 5 MG TABLET PO SCH (08:44)
[2020-09-08] MEDS: POLYETHYLENE GLYCOL POWDER 17 GM PACK PO SCH (08:44)
[2020-09-08] MEDS: APIXABAN 2.5 MG TABLET PO SCH (08:45)
[2020-09-08] MEDS: carvediloL 12.5 MG TABLET PO SCH (08:45)
[2020-09-08] MEDS: FERROUS SULFATE 325 MG TABLET PO SCH (08:45)
[2020-09-08] MEDS: amLODIPine 5 MG TABLET PO SCH (08:45)
[2020-09-08] MEDS: ASPIRIN EC 81 MG TABLET PO SCH (08:45)
[2020-09-08] MEDS: ATORVASTATIN 40 MG TABLET PO SCH (08:45)
[2020-09-08] MEDS: PANTOPRAZOLE 40 MG TABLET PO SCH (08:45)
[2020-09-08] MEDS: TAMSULOSIN 0.4 MG CAPSULE PO SCH (08:45)
[2020-09-08] MEDS: OFEV 100 MG PO SCH (08:46)
[2020-09-08] MEDS: FUROSEMIDE 40 MG/4 ML VIAL IV SCH (08:48)
[2020-09-08] MEDS ORDERED: methylPREDNISolone SOD SUC 40 MG/1 ML VIAL IV SCH (09:00)
== END 2020-09-08 10:41 | disposition home health service (06) ==
LOC: SUATTDRO 13:34 → INTOOBSV 13:34 → N.TELEN 13:34
PROVIDERS: ADMIT Internal Medicine; ATTEND Internal Medicine Geriatric Medicine